=== PATIENT | female | born 1975 | race African-American/Black ===

== ENCOUNTER 2018-02-04 14:35 | Inpatient (IN) | payer MEDICAID, OTHER ==
[~2018-02-04] VITALS: Ht 160 cm; Wt 77.1 kg
[~2018-02-04 14:35] MED LIST: IBUPROFEN600 MG ORAL; NORCO 5-325 TA1 EACH ORAL; ZOFRAN4 MG ORAL
[2018-02-04 14:54] VITALS: BP 141/99
--- NOTE | 2018-02-04 15:13 | Emergency Room Report ---
History of Present Illness General Chief Complaint: Vaginal Source: Patient Present Illness HPI 42-year-old female she 6 P2 with a remote history of left fallopian tube removal from an ectopic and breast cyst resection presents with 3 days of pelvic pain and vaginal bleeding, worsening today. She reports she is tried Motrin 800 with only partial relief. She reports she thinks she is but hasn't taken a test yet. She denies any leg pain leg swelling cough chest pain upper bowel pain, and reports no abnormal discharge, just bleeding. She also denies any urinary symptoms, nausea, vomiting, diarrhea, fevers, chills, shortness of breath. Allergies: Coded Allergies: SULFA (SULFONAMIDE ANTIBIOTICS) (Verified Allergy, Unknown, 10/31/13) Uncoded Allergies: SULFA (Allergy, Unknown, 10/31/13) Patient History Past Medical History: see triage record Last Menstrual Period: 02/02/18 Para: 2 Reviewed Nursing Documentation: PMH: Agreed; PSxH: Agreed Nursing Documentation-PMH Past Medical History: No Stated History Review of Systems All Other Systems: negative except mentioned in HPI Physical Exam Vital Signs Date Time Temp Pulse Resp B/P (MAP) Pulse Ox O2 Delivery O2 Flow Rate FiO2 02/04/18 14:44 97.9 101 20 141/99 98 Room Air 97.9 Sp02 EP Interpretation: reviewed, normal General Appearance: no apparent distress, alert, non-toxic Head: normocephalic Eyes: bilateral eye normal inspection, bilateral eye PERRL, bilateral eye EOMI ENT: normal ENT inspection, hearing grossly normal, normal pharynx, no angioedema, normal voice, moist mucus membranes Neck: normal inspection, full range of motion, supple, supple/symm/no masses Respiratory: chest non-tender, lungs clear, normal breath sounds, chest symmetrical, palpation of chest normal Cardiovascular #1: normal peripheral pulses, regular rate, rhythm Cardiovascular #2: 2+ radial (R), 2+ radial (L), 2+ dorsalis pedis (R), 2+ dorsalis pedis (L) Gastrointestinal: normal inspection, non tender, soft, no mass, no guarding, no rebound Rectal: deferred Genitourinary: normal inspection, no CVA tenderness Musculoskeletal: back normal, gait/station normal, normal range of motion, non- tender, no calf tenderness Neurologic: alert, responsive, varnish maker III-XII nml as tested, motor strength/tone normal, sensory intact, speech normal Psychiatric: judgement/insight normal, memory normal, mood/affect normal, anxious Skin: normal color, no rash, warm/dry, normal turgor Lymphatic: no adenopathy Medical Decision Making Diagnostic Impression: Primary Impression: Vaginal bleeding Additional Impression: IUFD (intrauterine ) ER Course Patient with concerns for , ectopic versus early IUP versus incomplete AB versus threatened AB. She was given a dose of Tylenol here, she has a soft nontender abdomen. Rh+, > 3000. Pending US. US showed IUFD. I spoke with Dr. Amor, OB, she recommended misoprostol/ cytotec 800mcg intravaginally or dissolvable into buccal mucosa, but our pharmacy reported to me we don't have those formulations, only oral misoprostol. Patient wants to stay since she has been having heavy bleeding and prefers to get D&C if need be. Dr. Amor reported that she thinks the oral formulation can be given as well and agreed to take patient to OR if need be tomorrow. She also requested IV zofran, patient be made NPO, and a strict pad count, as well as the misoprostol. All orders were placed and patient informed. CT/MRI/US Diagnostic Results CT/MRI/US Diagnostic Results : Imaging Test Ordered: Pelvic US Impression US shows 8 week IUP, but no FHR, likely IUFD per US tech. Last Vital Signs Date Time Temp Pulse Resp B/P (MAP) Pulse Ox O2 Delivery O2 Flow Rate FiO2 02/04/18 14:44 97.9 101 20 141/99 98 Room Air 97.9 Disposition: ADMITTED INPATIENT Condition: Serious Referrals: [facility],REFERRING (PCP) DALLAS WILLIS M.D Feb 04, 2018 15:13
[2018-02-04] MEDS ORDERED: Acetaminophen 500mg (ES) tab ORAL ONE (15:15)
[2018-02-04 15:45] LABS: BASOPHILS % (AUTO) 1.9 % (0.0-2.0); EOSINOPHILS % (AUTO) 1.5 % (0.0-3.0); HEMATOCRIT 41.1 % (37.0-47.0); HEMOGLOBIN 13.7 G/DL (12.0-16.0); LYMPHOCYTES % (AUTO) 29.6 % (20.0-45.0); MEAN CORPUSCULAR VOLUME 97 FL (80-99); PLATELET COUNT 277 K/UL (150-450); RED BLOOD COUNT 4.24 M/UL (4.20-5.40); RED CELL DISTRIBUTION WIDTH 10.7 % (11.6-14.8); WHITE BLOOD COUNT 7.6 K/UL (4.8-10.8)
[2018-02-04 15:52] LABS: ANION GAP 10 mmol/L (5-15); BLOOD UREA NITROGEN 9 mg/dL (7-18); CALCIUM 9.8 MG/DL (8.5-10.1); CARBON DIOXIDE 25 MMOL/L (21-32); CHLORIDE 105 MMOL/L (98-107); CREATININE 0.8 MG/DL (0.55-1.30); POTASSIUM 4.4 MMOL/L (3.5-5.1); SODIUM 140 MMOL/L (136-145)
[2018-02-04 15:58] LABS: ALANINE AMINOTRANSFERASE 26 U/L (12-78); ALBUMIN 3.9 G/DL (3.4-5.0); ALBUMIN/GLOBULIN RATIO 1.1 (1.0-2.7); ALKALINE PHOSPHATASE 74 U/L (46-116); ASPARTATE AMINO TRANSFERASE 20 U/L (15-37); BILIRUBIN,TOTAL 0.4 MG/DL (0.2-1.0)
[2018-02-04 16:00] LABS: APPEARANCE,URINE TURBID; BILIRUBIN, URINE NEGATIVE (NEGATIVE); GLUCOSE, URINE (UA) NEGATIVE (NEGATIVE); KETONES,URINE NEGATIVE (NEGATIVE); LEUKOCYTE ESTERASE ,URINE 1+ (NEGATIVE); NITRITE,URINE NEGATIVE (NEGATIVE); PH,URINE 5 (4.5-8.0); PROTEIN,URINE 3+ (NEGATIVE); UROBILINOGEN,URINE NORMAL MG/DL (0.0-1.0)
[2018-02-04 16:02] LABS: COLOR,URINE RED
[2018-02-04] MEDS ORDERED: Misoprostol 100mcg tab VAGIN ONE (17:45)
[2018-02-04 18:01] VITALS: BP 118/82
[2018-02-04] MEDS ORDERED: Misoprostol 100mcg tab ORAL SCH (18:30)
--- NOTE | 2018-02-04 20:35 | History & Physical ---
History and Physical History & Physicial GYNECOLOGY HISTORY & PHYSICAL CC: incomplete HPI: Chelsi is a 42yo who presented to the ED with complaint of heavy vaginal bleeding and cramping. She did not know she was until recently. LMP approx 12/02/17. This is an unplanned, undesired . She began having spotting and mild cramping on Sunday, which became heavier by Sunday and by today was very heavy with clots per patient. On arrival to the ED , US revealed embryonic demise at 8w. She denies any lightheadedness, dizziness , or palpitations. No fever or chills. No other complaints. Currently soaking 1 pad every 2 hours. PMH: Denies HTN, asthma, DM, or thyroid dz PSH: L salpingectomy for ectopic 15y ago, breast cyst removal at age 14 Meds: None Allergies: Sulfa OBHx: - x 2 (children ages 14 & 24), Ectopic x 1, Tab x 1, Sab x 3 (including this ) GYNHx: No hx abnl Pap, no known cysts or fibroids SocHx: Tobacco (8-10 cig/day) - has smoked since age 23 and stopped with all pregnancies, denies E/D FamHx: Grandmother breast cancer in her 60s, father DM, hx of heart disease VS: Tmax 98.3, BP 118/82, P 83, RR 20, O2 98% RA Exam: Gen: NAD HEENT: OP clear, MMM CV: Reg rate Pulm: No increased work of breathing Abd: Soft, TTP in suprapubic area, no rebound or guarding Pelvic: NEFG, no masses or lesions. Moderate blood on pad. Bimanual revealed open cervical os, blood and clot in vault, tissue and clot in cervix. Mild TTP at fundus. Ext: No calf TTP Labs: Test 02/04/18 15:30 White Blood Count 7.6 K/UL (4.8-10.8) Red Blood Count 4.24 M/UL (4.20-5.40) Hemoglobin 13.7 G/DL (12.0-16.0) Hematocrit 41.1 % (37.0-47.0) Mean Corpuscular Volume 97 FL (80-99) Mean Corpuscular Hemoglobin 32.4 PG (27.0-31.0) H Mean Corpuscular Hemoglobin Concent 33.4 G/DL (32.0-36.0) Red Cell Distribution Width 10.7 % (11.6-14.8) L Platelet Count 277 K/UL (150-450) Mean Platelet Volume 7.7 FL (6.5-10.1) Neutrophils (%) (Auto) 62.0 % (45.0-75.0) Lymphocytes (%) (Auto) 29.6 % (20.0-45.0) Monocytes (%) (Auto) 5.0 % (1.0-10.0) Eosinophils (%) (Auto) 1.5 % (0.0-3.0) Basophils (%) (Auto) 1.9 % (0.0-2.0) Urine Color Red Urine Appearance Turbid Urine pH 5 (4.5-8.0) Urine Specific [place] 1.020 (1.005-1.035) Urine Protein 3+ (NEGATIVE) H Urine Glucose (UA) Negative (NEGATIVE) Urine Ketones Negative (NEGATIVE) Urine Blood 5+ (NEGATIVE) H Urine Nitrite Negative (NEGATIVE) Urine Bilirubin Negative (NEGATIVE) Urine Urobilinogen Normal MG/DL (0.0-1.0) Urine Leukocyte Esterase 1+ (NEGATIVE) H Urine RBC Tntc /HPF (0 - 2) H Urine WBC 0-2 /HPF (0 - 2) Urine Squamous Epithelial Cells Occasional /LPF Urine Bacteria Moderate /HPF (NONE) H Sodium Level 140 MMOL/L (136-145) Potassium Level 4.4 MMOL/L (3.5-5.1) Chloride Level 105 MMOL/L (98-107) Carbon Dioxide Level 25 MMOL/L (21-32) Anion Gap 10 mmol/L (5-15) Blood Urea Nitrogen 9 mg/dL (7-18) Creatinine 0.8 MG/DL (0.55-1.30) Estimat Glomerular Filtration Rate > 60 mL/min (>60) Glucose Level 105 MG/DL (74-106) Calcium Level 9.8 MG/DL (8.5-10.1) Total Bilirubin 0.4 MG/DL (0.2-1.0) Aspartate Amino Transf (AST/SGOT) 20 U/L (15-37) Alanine Aminotransferase (ALT/SGPT) 26 U/L (12-78) Alkaline Phosphatase 74 U/L (46-116) Total Protein 7.3 G/DL (6.4-8.2) Albumin 3.9 G/DL (3.4-5.0) Globulin 3.4 g/dL Albumin/Globulin Ratio 1.1 (1.0-2.7) Human Chorionic Gonadotropin, Quant 3104 mIU/mL (1-6) H IMAGING: Pelvic US (results relayed to me over the phone by ED physician): 8w IUP, no cardiac movement, consistent with embryonic demise ASSESSMENT/PLAN: 42yo with incomplete at 8w, desiring medical management at this time - admit for observation of bleeding with hemorrhage precautions Discussed the R/B/A of management and all options including expectant vs medical vs surgical management, patient opted for medical management Discussed that bleeding is the primary risk with this management plan and if bleeding persists/worsens and she is unable to pass the by the AM we will proceed to the operating room for D&C Will admit for overnight observation given the amount of bleeding and desires for medical management If no passage of IUP overnight, will proceed to the OR for D&C with and without suction Strict pad counts, NPO starting at 11pm, IV fluids, Zofran prn, Toradol for pain , Tylenol for fever Patient is Rh positive, no indication for Rhogam T&C x 2u Magda Amor M.D. Feb 04, 2018 20:35
[2018-02-04] MEDS ORDERED: Ketorolac 30mg Inj IV SCH (21:00)
[2018-02-04] MEDS ORDERED: Ketorolac 30mg Inj IV PRN (21:38)
[2018-02-04] MEDS: D5 1/2NS 1,000 ML IV SCH (22:10)
[2018-02-04 22:26] VITALS: BP 106/67
[2018-02-05] VITALS (9 sets, daily range): BP systolic 106–121; BP diastolic 58–77
[2018-02-05] MEDS: D5 1/2NS 1,000 ML IV SCH (04:24)
--- NOTE | 2018-02-05 06:32 | Pre-Procedure Note/Attestation ---
Pre-Procedure Note/Attestation Complete Prior to Procedure Planned Procedure: not applicable Procedure Narrative: Dilation and curettage (with and without suction) Indications for Procedure Pre-Operative Diagnosis: Incomplete Attestation I attest that I discussed the nature of the procedure; its benefits; risks and complications; and alternatives (and the risks and benefits of such alternatives ), prior to the procedure, with the patient (or the patient's legal loan representative). I attest that, if there was a reasonable possibility of needing a blood transfusion, the patient (or the patient's legal loan representative) was given the [facility] standardized written summary, pursuant to the [employer] [place] Blood Safety Act ([place] Health and Safety Code # 1645, as amended). I attest that I re-evaluated the patient just prior to the surgery and that there has been no change in the patient's H&P, except as documented below: None Magda Amor M.D. Feb 05, 2018 06:32
--- NOTE | 2018-02-05 06:33 | General Progress Note ---
Progress Note Progress Note GYNECOLOGY PROGRESS NOTE Spoke with RN multiple times since initial visit and no passage of tissue. Will proceed to the OR for D&C. All patient questions answered. Magda Amro M.D. Feb 05, 2018 06:33
[2018-02-05] MEDS ORDERED: fentaNYL 100 mcg/2 mL IV ONE (06:36)
[2018-02-05] MEDS ORDERED: Propofol 200mg/20ml IV ONE (06:36)
[2018-02-05] MEDS ORDERED: Lidocaine 1% MPF 10mg/ml 5ml ONE (06:36)
[2018-02-05] MEDS ORDERED: Ketorolac 30mg Inj ONE (06:36)
[2018-02-05] MEDS ORDERED: Oxytocin 10 units/vial ONE (06:36)
[2018-02-05] MEDS ORDERED: Midazolam 2mg/2ml Inj ONE (06:36)
[2018-02-05] MEDS ORDERED: Methylergonovine 0.2mg/ml Inj IM ONE (06:37)
[2018-02-05 06:44] LABS: BASOPHILS % (AUTO) 1.2 % (0.0-2.0); EOSINOPHILS % (AUTO) 2.5 % (0.0-3.0); HEMATOCRIT 32.9 % (37.0-47.0); HEMOGLOBIN 11.3 G/DL (12.0-16.0); MEAN CORPUSCULAR VOLUME 98 FL (80-99); MONOCYTES % (AUTO) 9.5 % (1.0-10.0); NEUTROPHILS % (AUTO) 50.8 % (45.0-75.0); PLATELET COUNT 205 K/UL (150-450); RED BLOOD COUNT 3.37 M/UL (4.20-5.40); RED CELL DISTRIBUTION WIDTH 10.8 % (11.6-14.8); WHITE BLOOD COUNT 6.2 K/UL (4.8-10.8)
[2018-02-05] MEDS ORDERED: cefOXitin 1gm Inj ONE (06:47)
[2018-02-05] MEDS ORDERED: Sterile Water Irrig 1000ml IRRIG ONE (07:00)
[2018-02-05] MEDS ORDERED: LR 1000ml ONE (07:00)
[2018-02-05] MEDS ORDERED: NS Irrig 1000ml ONE (07:00)
[2018-02-05] MEDS ORDERED: LR 1000ml 1,000 ML IVLG SCH (07:31)
--- NOTE | 2018-02-05 07:31 | Anethesia Preoperative Eval ---
Anesthesia Pre-op PMH/ROS General Date of Evaluation: Feb 05, 2018 Time of Evaluation: 06:50 Anesthesiologist: Leatha ASA Score: ASA 2 Mallampati Score Class I : Soft palate, uvula, fauces, pillars visible Class II: Soft palate, uvula, fauces visible Class III: Soft palate, base of uvula visible Class IV: Only hard plate visible Mallampati Classification: Class II Surgeon: Judy Diagnosis: Incomplet Surgical Procedure: Suction D&C Anesthesia History: none Family History: no anesthesia problems Allergies: Coded Allergies: SULFA (SULFONAMIDE ANTIBIOTICS) (Verified Allergy, Unknown, 10/31/13) Uncoded Allergies: SULFA (Allergy, Unknown, 10/31/13) Past Medical History Cardiovascular: Denies: HTN, CAD, [place], valve dz, arrhythmia, other Pulmonary: Denies: asthma, COPD, [place], other Gastrointestinal/Genitourinary: Reports: GERD; Denies: CRI, ESRD, other Neurologic/Psychiatric: Denies: dementia, CVA, depression/anxiety, TIA, other Endocrine: Denies: DM, hypothyroidism, steroids, other HEENT: Denies: cataract (L), cataract (R), glaucoma, [place] (L), [place] (R), other Hematology/Immune: Reports: anemia - mild; Denies: DVT, bleeding disorder, other Musculoskeletal/Integumentary: Denies: OA, RA, DJD, DDD, edema, other Other: other - overweight PMH Narrative: as above, admitted for persistent vaginal bleeding PSxH Narrative: see H&P Anesthesia Pre-op Phys. Exam Physician Exam Last Vital Signs Date Time Temp Pulse Resp B/P (MAP) Pulse Ox O2 Delivery O2 Flow Rate FiO2 02/05/18 04:00 98.5 75 18 114/75 (88) 99 98.5 02/04/18 22:44 Room Air Constitutional: NAD Neurologic: CN 2-12 intact Cardiovascular: RRR, no M/R/G Respiratory: CTA Gastrointestinal: S/NT/ND Airway Exam Mallampati Score: Class II MO: full Neck: flexible ROM: full Teeth: intact Dentures: no upper, no lower Anesthesia Pre-op A/P Labs Hematology Test 02/04/18 15:30 02/05/18 06:05 White Blood Count 7.6 K/UL (4.8-10.8) 6.2 K/UL (4.8-10.8) Red Blood Count 4.24 M/UL (4.20-5.40) 3.37 M/UL (4.20-5.40) L Hemoglobin 13.7 G/DL (12.0-16.0) 11.3 G/DL (12.0-16.0) L Hematocrit 41.1 % (37.0-47.0) 32.9 % (37.0-47.0) L Mean Corpuscular Volume 97 FL (80-99) 98 FL (80-99) Mean Corpuscular Hemoglobin 32.4 PG (27.0-31.0) H 33.6 PG (27.0-31.0) H Mean Corpuscular Hemoglobin Concent 33.4 G/DL (32.0-36.0) 34.4 G/DL (32.0-36.0) Red Cell Distribution Width 10.7 % (11.6-14.8) L 10.8 % (11.6-14.8) L Platelet Count 277 K/UL (150-450) 205 K/UL (150-450) Mean Platelet Volume 7.7 FL (6.5-10.1) 8.9 FL (6.5-10.1) Neutrophils (%) (Auto) 62.0 % (45.0-75.0) 50.8 % (45.0-75.0) Lymphocytes (%) (Auto) 29.6 % (20.0-45.0) 36.0 % (20.0-45.0) Monocytes (%) (Auto) 5.0 % (1.0-10.0) 9.5 % (1.0-10.0) Eosinophils (%) (Auto) 1.5 % (0.0-3.0) 2.5 % (0.0-3.0) Basophils (%) (Auto) 1.9 % (0.0-2.0) 1.2 % (0.0-2.0) Chemistry Test 02/04/18 15:30 Sodium Level 140 MMOL/L (136-145) Potassium Level 4.4 MMOL/L (3.5-5.1) Chloride Level 105 MMOL/L (98-107) Carbon Dioxide Level 25 MMOL/L (21-32) Anion Gap 10 mmol/L (5-15) Blood Urea Nitrogen 9 mg/dL (7-18) Creatinine 0.8 MG/DL (0.55-1.30) Estimat Glomerular Filtration Rate > 60 mL/min (>60) Glucose Level 105 MG/DL (74-106) Calcium Level 9.8 MG/DL (8.5-10.1) Total Bilirubin 0.4 MG/DL (0.2-1.0) Aspartate Amino Transf (AST/SGOT) 20 U/L (15-37) Alanine Aminotransferase (ALT/SGPT) 26 U/L (12-78) Alkaline Phosphatase 74 U/L (46-116) Total Protein 7.3 G/DL (6.4-8.2) Albumin 3.9 G/DL (3.4-5.0) Globulin 3.4 g/dL Albumin/Globulin Ratio 1.1 (1.0-2.7) Human Chorionic Gonadotropin, Quant 3104 mIU/mL (1-6) H Risk Assessment & Plan Assessment: ASA 2 Plan: GA with LMA Pre-Antibiotics Drug: Cefoxitin 1 gr. Given Within 1 Hr of Incision: Yes Time Given: 07:12 Bi Zhang MD Feb 05, 2018 07:31
--- NOTE | 2018-02-05 07:35 | Brief Operative Note ---
Immediate Post Operative Note Operative Note Chief Complaint: Heavy vaginal bleeding Pre-op Diagnosis: Incomplete Procedure: Suction dilation and curettage Post-op Diagnosis: Incomplete Post-op Diagnosis: same as pre-op Surgeon: Magda Amor MD Anesthesiologist: Dr. Zhang Anesthesia: general - LMA Specimen: yes Complications: none Condition: stable Fluids: 500cc crystalloid Estimated Blood Loss: minimal Drains: none Implant(s) used?: No Magda Amor M.D. Feb 05, 2018 07:35
--- NOTE | 2018-02-05 07:42 | Operative Note - PDOC ---
Operative Note Operative Note Date of Operation/Procedure: Feb 05, 2018 Chief Complaint: Heavy vaginal bleeding Pre-op Diagnosis: Incomplete Procedure: Suction dilation and curettage Post-op Diagnosis: Incomplete Post-op Diagnosis: same as pre-op Surgeon: Magda Amor MD Anesthesiologist: Dr. Zhang Anesthesia: general - LMA Specimen: yes Complications: none Condition: stable Fluids: 500cc crystalloid Estimated Blood Loss: minimal Drains: none Implant(s) used?: No Indications for Procedure Incomplete with heavy vaginal bleeding Description of Procedure The R/B/A to the procedure were discussed with the patient and informed consent was obtained. The patient was taken to the operating room where general anesthesia was administered without difficulty. The patient was placed in dorsal lithotomy with SCD stockings in place. Exam under anesthesia revealed a 8-9cm uterus with dilated cervix and 50cc of dark clot in the vault. The patient was then prepped and draped in the usual sterile fashion. Time out was performed to verify correct patient and procedure. Antibiotics were administered. Straight cath was performed to empty the bladder. A sterile speculum was inserted into the vagina and the anterior lip of the cervix was grasped with a ring forceps. Retained products were visualized in the os and were withdrawn with polyp forceps. The cervix was dilated to accommodate the 9mm curette. The 9mm rigid suction curette was inserted into the uterine cavity and was used to perform gentle curettage. Retained products were visualized in the suction tubing. A gritty sensation was felt throughout the uterine cavity. The 6mm suction curette was then used to clear out all clots and debris from the uterine cavity and a gritty texture was appreciated throughout the uterine cavity once more. The procedure was ended. All instruments were removed and excellent hemostasis was noted. The patient was awakened from anesthesia and taken to the recovery room in good condition. The patient will be discharged home once she has met all discharge criteria. Magda Amor M.D. Feb 05, 2018 07:41
[2018-02-05] MEDS ORDERED: Meperidine 50mg/ml Inj(FOR RIGORS ONLY) IV PRN (07:45)
[2018-02-05] MEDS ORDERED: Ketorolac 30mg Inj IV PRN ×2 (07:45)
[2018-02-05] MEDS ORDERED: Norco 5mg/325mg tab ORAL PRN (07:45)
[2018-02-05] MEDS ORDERED: Metoclopramide 10mg/2ml Inj IVP PRN (07:45)
[2018-02-05] MEDS ORDERED: DiphenhydrAMINE 50mg/ml Inj IVP PRN (07:45)
--- NOTE | 2018-02-05 07:49 | Discharge Summary ---
Discharge Summary Hospital Course Date of Admission Feb 04, 2018 at 18:20 Date of Discharge 02/05/18 Admitting Diagnosis INTRA UTERINE DEMISE Reason for Hospitalization: Heavy bleeding, incomplete HPI Chelsi Coburn is a 42 year old female who was admitted on Feb 04, 2018 at 18: 20 for Intra Uterine Demise (Incomplete ). She desired medical management and was given Misoprostol, however she failed to pass the retained products overnight and continued to have heavy bleeding with clots and cramping. The decision was made to proceed with surgical management. Consultations Anesthesia Procedures Suction dilation and curettage Hospital Course The patient was admitted for observation from the ER, and received Misoprostol for medical management of incomplete . She failed medical management and was taken to the OR on HD#2 for suction dilation and curettage. The surgery was uncomplicated. The patient was discharged home once she met all post-op discharge criteria. Discharge Condition Upon Discharge: stable Discharge Disposition atient was discharged to home Discharge Diagnoses: (1) Incomplete (2) IUFD (intrauterine ) Magda Amor M.D. Feb 05, 2018 07:49
--- NOTE | 2018-02-05 07:51 | Immediate Post-Op Evaluation ---
Immediate Post-Op Evalulation Immediate Post-Op Evalulation Procedure: Suction D&C Date of Evaluation: Feb 05, 2018 Time of Evaluation: 07:50 IV Fluids: 600 Blood Products: none Estimated Blood Loss: 50 Urinary Output: 150 Blood Pressure Systolic: 116 Blood Pressure Diastolic: 72 Pulse Rate: 64 Respiratory Rate: 20 O2 Sat by Pulse Oximetry: 98 Temperature (Fahrenheit): 97.5 Pain Score (1-10): 2 Nausea: No Vomiting: No Complications none Patient Status: awake, patent, none Hydration Status: adequate Bi Zhang MD Feb 05, 2018 07:51
--- NOTE | 2018-02-05 08:36 | Diagnostic Imaging Report ---
Indication: Pelvic pain, transvaginal bleeding, positive test Technique: Transabdominal and transvaginal images Comparison: none Findings: Uterus measures 9.9 cm length by 5 cm AP. Within the lower uterine segment endometrium and upper endocervical canal, there is a fluid collection which contains what appears to be a pole. This demonstrates a crown-rump length of 10 mm, corresponding to an assessment gestational age of 7 weeks zero days. No heart activity demonstrated. Small hypoechoic structures are seen in the myometrium measuring up to 9 mm diameter, presumably small fibroids. Right ovary measures 2.4 cm in length. Left ovary measures 3.2 cm length. No adnexal mass demonstrated. No free cul-de-sac fluid demonstrated. Impression: Fluid collection, presumably a gestational sac, with what appears to be a nonviable 7 week in the lower uterine segment and upper endocervical canal. Findings either represent missed or in progress. Correlate with clinical findings and serial beta hCGs, consider follow-up sonography as indicated. Small uterine fibroids
[2018-02-05] MEDS ORDERED: NKM ×2 (09:33→09:34)
[2018-02-05] MEDS ORDERED: D5 1/2NS 1000ml IV ONE (10:14)
--- NOTE | 2018-02-05 14:29 | 48 Hour Post Anesthesia Eval ---
Post Anesthesia Evaluation Procedure: Suction D&C Date of Evaluation: Feb 05, 2018 Time of Evaluation: 10:35 Blood Pressure Systolic: 116 0: 58 Pulse Rate: 72 Respiratory Rate: 20 Temperature (Fahrenheit): 97.5 O2 Sat by Pulse Oximetry: 98 Airway: patent Nausea: No Vomiting: No Pain Intensity: 2 Hydration Status: adequate Cardiopulmonary Status: stable Mental Status/LOC: patient returned to baseline Follow-up Care/Observations: n/a Post-Anesthesia Complications: none Follow-up care needed: ready to discharge Bi Zhang MD Feb 05, 2018 14:29
--- NOTE | 2018-02-06 09:03 | Consultation ---
Consult Note Consult Note Chelsi is a 42yo who presented to the ED with complaint of heavy vaginal bleeding and cramping. She did not know she was until recently. LMP approx 12/02/17. This is an unplanned, undesired . She began having spotting and mild cramping on Sunday, which became heavier by Sunday and by today was very heavy with clots per patient. On arrival to the ED , US revealed embryonic demise at 8w. She denies any lightheadedness, dizziness , or palpitations. No fever or chills. No other complaints. Currently soaking 1 pad every 2 hours. Seen by manual tester. Plans noted for D&C PMH: Denies HTN, asthma, DM, or thyroid dz PSH: L salpingectomy for ectopic 15y ago, breast cyst removal at age 14 Meds: None Allergies: Sulfa OBHx: - x 2 (children ages 14 & 24), Ectopic x 1, Tab x 1, Sab x 3 (including this ) GYNHx: No hx abnl Pap, no known cysts or fibroids SocHx: Tobacco (8-10 cig/day) - has smoked since age 23 and stopped with all pregnancies, denies E/D FamHx: Grandmother breast cancer in her 60s, father DM, hx of heart disease VS: Tmax 98.3, BP 118/82, P 83, RR 20, O2 98% RA Exam: Gen: NAD HEENT: OP clear, MMM CV: Reg rate Pulm: No increased work of breathing Abd: Soft, TTP in suprapubic area, no rebound or guarding Pelvic: NEFG, no masses or lesions. Moderate blood on pad. Bimanual revealed open cervical os, blood and clot in vault, tissue and clot in cervix. Mild TTP at fundus. Ext: No calf TTP Assessment/Plan Berenice per gyne Plans noted for D&C Possible dc home ;ater today Medically stable Ryan Christiansen MD Feb 06, 2018 09:03
== END 2018-02-05 10:15 | disposition home or self-care (01) | DRG 544 ==
LOC: EMR 15:02 → EDBEDREQ 17:56 → 3E 18:20 → EDBEDREQ 18:48
PROC: 10D17Z9 Manual Extraction of Products of Conception, Retained, Via Natural or Artificial Opening (ICD-10-PCS; principal; 2018-02-05 07:00)
DX: O03.4 Incomplete spontaneous abortion without complication (principal); Z88.2 Allergy status to sulfonamides; O03.1 Delayed or excessive hemorrhage following incomplete spontaneous abortion
CPT/HCPCS: 36415; 76801; 76811; 80053; 81003; 84702; 85025; 86850; 86900; 86901; 86920; 87086; 87181; 94003; 94150; J2250; J2405; J2590